=== PATIENT | female | born 1980 | race African-American/Black ===

== ENCOUNTER 2017-08-09 13:59 | Emergency (ER) | payer OTHER ==
[~2017-08-09] VITALS: Ht 165.1 cm; Wt 90.7 kg
[~2017-08-09 13:59] MED LIST: BUTALB-APAP-CA1 EACH PO; CARVEDILOL12.5 MG PO; CITRATE OF MAG296 ML PO; CLONIDINE0.1; COREG25 MG; CORICIDIN COLD1 EACH PO; DIFLUCAN150 MG PO; DIOVAN320 MG; FLAGYL500 MG PO; HYDROCHLOROTHIA25 M2; KLONOPIN2 MG PO; NORVASC10 MG; NORVASC10 MG PO; PREDNISONE 20 M20 M1 PO; PROAIR HFA8.5 GM INH; PROMETH-CODEIN 65 ML PO; SEROQUEL300 MG PO; TESSALON PERLE100 MG PO; TRAZODONE HCL50 MG PO; TRILEPTAL600 MG PO; VENTOLIN HFA 1818 GM INH; VYVANSE70 MG PO; ZPAK PO
[2017-08-09] MEDS ORDERED: LACTULOSE10 GM/15 M PO (14:11)
[2017-08-09 14:25] LABS: ABSOLUTE EOSINOPHILS 0.1 thou/uL (0.0-0.7); ABSOLUTE LYMPHOCYTES 1.7 thou/uL (0.8-5.3); ABSOLUTE MONOCYTES 0.4 thou/uL (0.0-1.2); ABSOLUTE NEUTROPHILS 4.9 thou/uL (1.6-8.1); BASOPHILS 0.6 %; EOSINOPHILS 1.1 %; HEMATOCRIT 28.1 % (37.0-47.0); HEMOGLOBIN 9.6 gm/dL (12.0-15.0); LYMPHOCYTES 23.9 %; MCH 31.6 pg (26.0-34.0); MCHC 34.2 g/dL (28.0-37.0); MCV 92.5 fL (80.0-100.0); MONOCYTES 5.6 %; MPV 6.8 fl. (7.2-11.1); NUCLEATED RBCS 0 /100WBC; PLATELET COUNT* 356 thou/uL (150-400); POLYS 68.8 %; RBC 3.04 mil/uL (4.20-5.00); RDW-CV 14.2 % (10.5-14.5); WBC 7.1 thou/uL (4.0-11.0)
[2017-08-09 14:34] LABS: ANION GAP 13 mmol/L (7-16); BUN 9 mg/dL (7-18); CALCIUM 8.8 mg/dL (8.5-10.1); CHLORIDE 97 mmol/L (98-107); CO2 23 mmol/L (21-32); GLUCOSE 132 mg/dL (70-99); POTASSIUM 3.4 mmol/L (3.5-5.1); SODIUM 133 mmol/L (136-145)
[2017-08-09 14:41] LABS: ALBUMIN 3.4 g/dL (3.4-5.0); ALKALINE PHOSPHATASE 109 U/L (46-116); LIPASE 67 U/L (73-393); MAGNESIUM 1.6 mg/dL (1.8-2.4); SGOT 13 U/L (15-37); SGPT 16 U/L (30-65); TOTAL BILIRUBIN 0.1 mg/dL (<0.1-1.0); TOTAL PROTEIN 8.1 g/dL (6.4-8.2); TROPONIN-I LEVEL <0.06 ng/mL (<0.06)
[2017-08-09] MEDS ORDERED: NORCO 5-325 TA1 EACH PO (16:22)
[2017-08-09 16:25] VITALS: BP 133/82
--- NOTE | 2017-08-11 18:38 | EKG ---
[place] [address] ELECTROCARDIOGRAM REPORT Name: CHICHI ARAUZ Room: [facility]#: [id number] Admission: 08/09/17 Attend Phys: Discharge: 08/09/17 Date of : 76 Report #: [id number] THIS REPORT FOR: //name// [facility] ED Test Date: 2017-08-09 Test Time: 14:06:21 Pat Name: CHICHI ARAUZ Department: Room: Gender: F Media Professional: KYLEE : 1980 Requested By: Son Renner Order Number: [id number] MD: Rui Ragland Measurements Intervals [place] Rate: 125 P: 36 MT: 157 QRS: 23 QRSD: 75 T: -7 QT: 308 QTc: 445 Interpretive Statements Sinus tachycardia Borderline T abnormalities, inferior leads Compared to ECG 11/23/2016 07:45:46 T-wave abnormality now present Electronically Signed On 08-11-2017 18:37:50 CDT by Rui Ragland [email or web address] <ELECTRONICALLY SIGNED> By: Rui Ragland MD, [facility] 08/11/17 1837 1406 1406 Rui Ragland MD, FACC /EPI
== END 2017-08-09 16:27 | disposition home or self-care (01) ==
LOC: M.ERS 13:59
PROVIDERS: Emergency Medicine Emergency Medical Services
DX: M25.512 Pain in left shoulder (principal); I10 Essential (primary) hypertension; F31.9 Bipolar disorder, unspecified; G43.909 Migraine, unspecified, not intractable, without status migrainosus

== ENCOUNTER 2018-02-23 17:28 | Emergency (ER) | payer OTHER ==
[~2018-02-23] VITALS: Ht 165.1 cm; Wt 80.7 kg
[~2018-02-23 17:28] MED LIST changes: +LACTULOSE10 GM/15 M PO; +NORCO 5-325 TA1 EACH PO
[2018-02-23] MEDS ORDERED: BUSPIRONE HCL10 MG PO (17:38)
[2018-02-23 18:18] LABS: ABSOLUTE EOSINOPHILS 0.2 thou/uL (0.0-0.7); ABSOLUTE MONOCYTES 0.5 thou/uL (0.0-1.2); ABSOLUTE NEUTROPHILS 4.6 thou/uL (1.6-8.1); BASOPHILS 0.3 %; EOSINOPHILS 2.4 %; HEMATOCRIT 30.2 % (37.0-47.0); HEMOGLOBIN 9.8 gm/dL (12.0-15.0); LYMPHOCYTES 27.6 %; MCH 28.3 pg (26.0-34.0); MCHC 32.6 g/dL (28.0-37.0); MCV 86.9 fL (80.0-100.0); MONOCYTES 6.9 %; MPV 6.9 fl. (7.2-11.1); NUCLEATED RBCS 0 /100WBC; PLATELET COUNT* 425 thou/uL (150-400); POLYS 62.8 %; RBC 3.48 mil/uL (4.20-5.00); RDW-CV 15.5 % (10.5-14.5); WBC 7.3 thou/uL (4.0-11.0)
[2018-02-23 18:31] LABS: ANION GAP 10 mmol/L (7-16); BUN 7 mg/dL (7-18); CHLORIDE 98 mmol/L (98-107); CO2 24 mmol/L (21-32); GLUCOSE 113 mg/dL (70-99); POTASSIUM 3.5 mmol/L (3.5-5.1); SODIUM 132 mmol/L (136-145)
[2018-02-23 18:36] LABS: ALBUMIN 3.4 g/dL (3.4-5.0); ALKALINE PHOSPHATASE 105 U/L (46-116); SGOT 12 U/L (15-37); SGPT 12 U/L (30-65); TOTAL BILIRUBIN 0.1 mg/dL (<0.1-1.0); TOTAL PROTEIN 8.5 g/dL (6.4-8.2); TROPONIN-I LEVEL <0.06 ng/mL (<0.06)
[2018-02-23 19:11] VITALS: BP 168/106
--- NOTE | 2018-02-25 13:42 | EKG ---
[place] [address] ELECTROCARDIOGRAM REPORT Name: CHICHI ARAUZ [id number] Admission: 02/23/18 Attend Phys: Discharge: 02/23/18 Date of : 76 Report #: [id number] THIS REPORT FOR: //name// [facility] ED Test Date: 2018-02-23 Test Time: 18:34:29 Pat Name: CHICHI ARAUZ Department: Room: Gender: F Echocardiograph Tech: MITCHEL : 1980 Requested By: Teodora France Order Number: [id number] MD: Antonio Wilson Measurements Intervals [place] Rate: 96 P: 37 SD: 144 QRS: 23 QRSD: 73 T: 23 QT: 348 QTc: 440 Interpretive Statements Sinus rhythm Compared to ECG 08/09/2017 14:06:21 Sinus tachycardia no longer present Electronically Signed On 02-25-2018 13:42:20 CAN WASHER by Antonio Wilson [email or web address] <ELECTRONICALLY SIGNED> By: Antonio Wilson MD, [facility] 02/25/18 1342 1834 1834 Antonio Wilson MD, FACC /EPI
== END 2018-02-23 19:12 | disposition home or self-care (01) ==
LOC: M.ERS 17:28
PROVIDERS: Nurse Practitioner Family
DX: M25.531 Pain in right wrist (principal); R05 Cough; R00.0 Tachycardia, unspecified; F31.9 Bipolar disorder, unspecified; I10 Essential (primary) hypertension; G43.909 Migraine, unspecified, not intractable, without status migrainosus; F98.8 Other specified behavioral and emotional disorders with onset usually occurring in childhood and adolescence

== ENCOUNTER 2018-04-26 19:31 | Emergency (ER) | payer OTHER ==
[~2018-04-26] VITALS: Ht 165.1 cm; Wt 83.9 kg
[~2018-04-26 19:31] MED LIST changes: +BUSPIRONE HCL10 MG PO
[2018-04-26 20:34] LABS: HEMOGLOBIN 9.3 gm/dL (12.0-15.0); MCV 85.7 fL (80.0-100.0); NUCLEATED RBCS 0 /100WBC
[2018-04-26 20:36] LABS: ABSOLUTE EOSINOPHILS 0.2 thou/uL (0.0-0.7); ABSOLUTE LYMPHOCYTES 2.3 thou/uL (0.8-5.3); ABSOLUTE MONOCYTES 0.5 thou/uL (0.0-1.2); ABSOLUTE NEUTROPHILS 3.5 thou/uL (1.6-8.1); BASOPHILS 0.7 %; EOSINOPHILS 3.2 %; HEMATOCRIT 28.5 % (37.0-47.0); LYMPHOCYTES 34.4 %; MCH 27.9 pg (26.0-34.0); MCHC 32.6 g/dL (28.0-37.0); MONOCYTES 7.9 %; MPV 7.5 fl. (7.2-11.1); PLATELET COUNT* 414 thou/uL (150-400); POLYS 53.8 %; RBC 3.33 mil/uL (4.20-5.00); RDW-CV 15.8 % (10.5-14.5); WBC 6.6 thou/uL (4.0-11.0)
[2018-04-26 20:53] LABS: ALBUMIN 3.1 g/dL (3.4-5.0); ALKALINE PHOSPHATASE 106 U/L (46-116); ANION GAP 8 mmol/L (7-16); BUN 14 mg/dL (7-18); CHLORIDE 100 mmol/L (98-107); CO2 27 mmol/L (21-32); CREATININE 1.1 mg/dL (0.6-1.3); GLUCOSE 134 mg/dL (70-99); LIPASE 80 U/L (73-393); POTASSIUM 3.6 mmol/L (3.5-5.1); SGOT 10 U/L (15-37); SGPT 14 U/L (30-65); SODIUM 135 mmol/L (136-145); TOTAL BILIRUBIN < 0.1 mg/dL (<0.1-1.0); TOTAL PROTEIN 7.6 g/dL (6.4-8.2)
[2018-04-26] MEDS ORDERED: FLEET ENEMA EX230 ML RECTAL (21:31)
[2018-04-26] MEDS ORDERED: GOLYTELY PACKE1 EACH PO (21:31)
[2018-04-26] MEDS ORDERED: BISACODYL SUPP10 MG RECTAL (21:31)
[2018-04-26 23:46] VITALS: BP 180/103
== END 2018-04-26 23:46 | disposition home or self-care (01) ==
LOC: M.ERS 19:31
PROVIDERS: Physician Assistant
DX: K59.00 Constipation, unspecified (principal); F31.9 Bipolar disorder, unspecified; F90.9 Attention-deficit hyperactivity disorder, unspecified type; I10 Essential (primary) hypertension; G43.909 Migraine, unspecified, not intractable, without status migrainosus

== ENCOUNTER 2018-10-09 18:12 | Emergency (ER) | payer OTHER ==
[~2018-10-09] VITALS: Ht 165.1 cm; Wt 86.2 kg
[~2018-10-09 18:12] MED LIST changes: +BISACODYL SUPP10 MG RECTAL; +FLEET ENEMA EX230 ML RECTAL; +GOLYTELY PACKE1 EACH PO
[2018-10-09] MEDS ORDERED: HYDROCHLOROTH12.5 M2 PO (18:26)
[2018-10-09] MEDS ORDERED: NORVASC2.5 MG PO (18:26)
[2018-10-09] MEDS ORDERED: LISINOPRIL10 MG PO (18:26)
[2018-10-09 18:48] LABS: ABSOLUTE BASOPHILS 0.1 thou/uL (0.0-0.2); ABSOLUTE EOSINOPHILS 0.2 thou/uL (0.0-0.7); ABSOLUTE LYMPHOCYTES 2.9 thou/uL (0.8-5.3); ABSOLUTE MONOCYTES 0.6 thou/uL (0.0-1.2); ABSOLUTE NEUTROPHILS 4.7 thou/uL (1.6-8.1); EOSINOPHILS 1.9 %; HEMATOCRIT 30.9 % (37.0-47.0); LYMPHOCYTES 34.4 %; MCH 28.5 pg (26.0-34.0); MCHC 32.3 g/dL (28.0-37.0); MCV 88.1 fL (80.0-100.0); MONOCYTES 6.9 %; MPV 8.3 fl. (7.2-11.1); NUCLEATED RBCS 0 /100WBC; PLATELET COUNT* 369 thou/uL (150-400); POLYS 55.8 %; RDW-CV 15.7 % (10.5-14.5); WBC 8.4 thou/uL (4.0-11.0)
[2018-10-09 18:56] LABS: ANION GAP 9 mmol/L (7-16); BUN 13 mg/dL (7-18); CALCIUM 9.2 mg/dL (8.5-10.1); CHLORIDE 100 mmol/L (98-107); CO2 28 mmol/L (21-32); CREATININE 1.1 mg/dL (0.6-1.3); GLUCOSE 106 mg/dL (70-99); POTASSIUM 4.2 mmol/L (3.5-5.1); SODIUM 137 mmol/L (136-145)
[2018-10-09 19:05] LABS: ALBUMIN 3.5 g/dL (3.4-5.0); ALKALINE PHOSPHATASE 99 U/L (46-116); SGOT 21 U/L (15-37); SGPT 22 U/L (30-65); TOTAL BILIRUBIN 0.1 mg/dL (<0.1-1.0); TOTAL PROTEIN 8.4 g/dL (6.4-8.2); TROPONIN-I LEVEL <0.06 ng/mL (<0.06)
[2018-10-09 19:41] VITALS: BP 159/98
--- NOTE | 2018-10-12 13:02 | EKG ---
[place] [address] ELECTROCARDIOGRAM REPORT Name: CHICHI ARAUZ [id number] Admission: 10/09/18 Attend Phys: Discharge: 10/09/18 Date of : 76 Report #: [id number] THIS REPORT FOR: //name// [facility] ED Test Date: 2018-10-09 Test Time: 18:32:28 Pat Name: CHICHI ARAUZ Department: Room: Gender: F Lead Atg Developer: : 1980 Requested By: Andrew Pagan Order Number: [id number] MD: Antonio Wilson Measurements Intervals [place] Rate: 84 P: 24 SC: 123 QRS: 20 QRSD: 76 T: 19 QT: 346 QTc: 409 Interpretive Statements Sinus rhythm Baseline wander in lead(s) V2 Compared to ECG 02/23/2018 18:34:29 No significant changes Electronically Signed On 10-12-2018 13:02:10 CDT by Antonio Wilson [email or web address] <ELECTRONICALLY SIGNED> By: Antonio Wilson MD, [facility] 10/12/18 1302 183 31 Antonio Wilson MD, FACC /EPI
== END 2018-10-09 19:43 | disposition home or self-care (01) ==
LOC: M.ERS 18:12
PROVIDERS: Emergency Medicine
DX: R20.2 Paresthesia of skin (principal); M54.6 Pain in thoracic spine; M79.18 Myalgia, other site; R20.0 Anesthesia of skin; F31.9 Bipolar disorder, unspecified; F90.9 Attention-deficit hyperactivity disorder, unspecified type; I10 Essential (primary) hypertension; G43.909 Migraine, unspecified, not intractable, without status migrainosus

== ENCOUNTER 2019-03-15 08:43 | Emergency (ER) | payer OTHER ==
[~2019-03-15] VITALS: Ht 170.2 cm; Wt 87.1 kg
[~2019-03-15 08:43] MED LIST changes: +LISINOPRIL-HCT1 EACH PO; +LISINOPRIL10 MG PO; +NORVASC5 MG PO
[2019-03-15] MEDS ORDERED: TRILEPTAL600 MG PO (09:06)
[2019-03-15] MEDS ORDERED: HYDROXYZINE HCL25 M2 PO (09:06)
[2019-03-15 09:25] LABS: CALCIUM 8.6 mg/dL (8.5-10.1); CREATININE 1.1 mg/dL (0.6-1.3); POTASSIUM 4.1 mmol/L (3.5-5.1)
[2019-03-15 09:31] LABS: INFLUENZA A ANTIGEN Negative (Negative); INFLUENZA B ANTIGEN Negative (Negative)
[2019-03-15] MEDS ORDERED: FLEXERIL PO (09:53)
[2019-03-15] MEDS ORDERED: TESSALON PERLE100 M1 PO (09:53)
[2019-03-15] MEDS ORDERED: ZOFRAN ODT4 MG DISSOLVE (09:53)
[2019-03-15] MEDS ORDERED: IBUPROFEN 800800 M1 PO (09:53)
[2019-03-15 10:18] VITALS: BP 176/107
--- NOTE | 2019-03-15 10:45 | EKG ---
[place] [address] ELECTROCARDIOGRAM REPORT Name: CHICHI ARAUZ [id number] Admission: 03/15/19 Attend Phys: Discharge: 03/15/19 Date of : 76 Report #: [id number] THIS REPORT FOR: //name// [facility] ED Test Date: 2019-03-15 Test Time: 09:28:34 Pat Name: CHICHI ARAUZ Department: Room: Gender: F Physician Compensation Analyst: : 1980 Requested By: Son Renner Order Number: [id number] MD: Antonio Wilson Measurements Intervals [place] Rate: 77 P: 6 MD: 152 QRS: 24 QRSD: 73 T: 32 QT: 387 QTc: 438 Interpretive Statements Sinus rhythm Compared to ECG 10/09/2018 18:32:28 No significant changes Electronically Signed On 03-15-2019 10:45:16 PILL PACKER by Antonio Wilson [email or web address] <ELECTRONICALLY SIGNED> By: Antonio Wilson MD, [facility] 03/15/19 1045 0928 0928 Antonio Wilson MD, FACC /EPI
== END 2019-03-15 10:20 | disposition home or self-care (01) ==
LOC: M.ERS 08:43
PROVIDERS: Emergency Medicine Emergency Medical Services
DX: J06.9 Acute upper respiratory infection, unspecified (principal); I10 Essential (primary) hypertension; G43.909 Migraine, unspecified, not intractable, without status migrainosus